=== PATIENT | female | born 1945 | race Caucasian/White ===

== ENCOUNTER 2024-06-02 14:58 | Outpatient (REF) | payer MEDICARE, SELFPAY ==
--- OUTSIDE RECORDS SUMMARY | 2024-06-02 16:08 | XMS_ITS | Clinical Summary ---
Author Organization [facility] [address] [facility] Address [address] [place] [address] Phone Care Team Providers Care Databases Software Consultant Name Role Phone Rk Stringer MD Primary Care Provider [phone] Allergies No known active allergies Medications Medication Sig Dispensed Refills Start Date End Date Status amLODIPine (NORVASC) 2.5 mg tablet Take 1 tablet (2.5 mg total) by mouth 1 (one) time each day. 03/13/2023 Active aspirin 81 mg EC tablet Take 1 tablet (81 mg total) by mouth 1 (one) time. Active atorvastatin (LIPITOR) 20 mg tablet Take 1 tablet (20 mg total) by mouth 1 (one) time each day. 04/24/2023 Active calcium carbonate (Calcium 500) 1250 mg (500 mg elemental calcium) chewable tablet Chew 1,000 mg. 05/14/2016 Active cholecalciferol (VITAMIN D-3) 25 mcg (1,000 unit) capsule Take 1 capsule (1,000 Units total) by mouth 1 (one) time each day. Active levothyroxine (SYNTHROID, LEVOTHROID) 25 mcg tablet Take 1 tablet (25 mcg total) by mouth 1 (one) time each day. 05/01/2023 Active loratadine (CLARITIN) 10 mg tablet Take 1 tablet (10 mg total) by mouth 1 (one) time each day. 10/21/2022 Active losartan (COZAAR) 50 mg tablet Take 1 tablet (50 mg total) by mouth 1 (one) time each day. 03/13/2023 Active Active Problems Problem Noted Date Diagnosed Date Multiple thyroid nodules 11/28/2014 Tubular adenoma of colon 11/10/2014 Overview (07/03/2023): 2012 Subclinical hyperthyroidism 10/28/2014 Hypertension 08/31/2014 Hyperlipidemia 08/31/2014 Vitamin D deficiency 08/31/2014 Hypothyroidism 08/31/2014 Diverticulosis 08/31/2014 GERD (gastroesophageal reflux disease) 5 Osteoporosis 08/31/2014 Overview (07/03/2023): DEXA Axial Skeleton 05/13/2013 Encounters Date Type Department Care Team Description 03/15/2024 11:00 AM EST Office Visit Adult Medicine [address] [address] Rk Stringer MD Primary hypertension (Primary Dx); Memory loss; Vitamin D deficiency; Hypothyroidism, unspecified type; Multiple thyroid nodules from Last 3 Months Immunizations Name Administration Dates Next Due Influenza Quadravalent, 0.5m l (Fluzone High-dose) 65yo and older 01/13/2023,12/18/2021 Influenza trivalent, 0.5mL ( Fluzone High-dose) 65yo and older 12/18/2021 Influenza, Unspecified 01/05/2020,2018,01/04/2018,01/19,01/16/2016,01/11/2015,01/24/2008 Pfizer (ages 12 & older) Biv alent, COVID-19 02/07/2022 Pfizer SARS-CoV-2 COVID-19, mRNA, LNP-S, preservative free 01/16/2023,01/05/2021 Pneumococcal conjugate 13 va lent (Prevnar 13, PCV13) 2mo and older 01/05/2020,01/16/2016 Pneumococcal polysaccharide 23 valent (Pneumovax 23) 2yo and older 01/11/2015 Td Tetanus diptheria (Tdvax) 7yo and older 01/05/2021 Zoster Live 02/08/2015 Zoster recombinant (Shingrix ) 19yo and older 01/26/2020,11/26/2019 Surgical History Surgery Date Site/Laterality Comments OTHER SURGICAL HISTORY 1969 Right PROCEDURE: ---- OTHER ----; COMMENT: Shoulder surgery OTHER SURGICAL HISTORY 1989 PROCEDURE: MT HYSTEROSCOPY REMOVAL LEIOMYOMATA; COMMENT: fibroid resection MULTIPLE TOOTH EXTRACTIONS PROCEDURE: HISTORICAL DENTAL EXTRACTION COLONOSCOPY 2012 PROCEDURE: HISTORICAL COLONOSCOPY; COMMENT: adenoma repeat 5 yrs SHOULDER SURGERY Right PROCEDURE: MT UNLISTED PROCEDURE SHOULDER; COMMENT: calcium in shoulder COLONOSCOPY 09/04/2018 PROCEDURE: HISTORICAL COLONOSCOPY; COMMENT: 5 mm polyp: Tubular adenoma. CATARACT EXTRACTION 2017 Bilateral PROCEDURE: HISTORICAL CATARACT REMOVAL BREAST BIOPSY Right PROCEDURE: BX BREAST; PERC NEEDLE CORE W/IMAG GUID; COMMENT: benign Medical History Medical History Date Comments Hypertension 08/31/2014 DX:Hypertension Diverticulosis 08/31/2014 DX:Diverticulosi s; COMMENT: Colonoscopy 01/14/2013 Osteoporosis 08/31/2014 DX:Osteoporosis; COMMENT: DEXA Axial Skeleton 05/13/2013 GERD (gastroesophageal reflux disease) 08/31/2014 DX:GERD (gastroesophageal reflux disease) Hyperlipidemia 08/31/2014 DX:Hyperlipidemi a Vitamin D deficiency 08/31/2014 DX:Vitamin D deficiency Hypothyroidism 08/31/2014 DX:Hypothyroidis m Tubular adenoma of colon 11/10/2014 DX:Tubu lar adenoma of colon; COMMENT: 2012 Family History Medical History Relation Name Comments Breast cancer Aunt mat and cousin Heart attack Father Arthritis Mother Heart attack Mother Colon cancer Neg Hx Ovarian cancer Neg Hx Relation Name Status Comments Aunt mat Father Mother Other mat 1st cousin Alive Social History Tobacco Use Types Packs/Day Years Used Date Smoking Tobacco: Never Smokeless Tobacco: Never Tobacco Cessation:Counseling Given: Not Answered Alcohol Use Standard Drinks/Week Comments No 0 (1 standard drink = 0.6 oz pur e alcohol) Housing Instability Answer Date Recorde d Are you worried that in the next 2 months you may not have stable housing? No 03/13/2024 Food Access & Nutrition Answer Date Rec orded Do you have access to a vari ety of food including fruits and vegetables? Yes 03/13/2024 Access to Healthcare Answer Date Record ed Within the last 3 months, ho w many times did you visit the emergency department for your medical care? 0 03/13/2024 Health Literacy Answer Date Recorded How often do you need to hav e someone help you when you read instructions, pamphlets, or other written material from your doctor or pharmacy? Never 03/13/2024 Caregiver: How often do you need to have someone help you when you read instructions, pamphlets, or other written material from your doctor or pharmacy? Not on file 03/13/2024 Financial Risk Answer Date Recorded How hard is it for you to pa y for the very basics like food, housing, medical care, and air conditioning / heating? Not asked 03/13/2024 Transportation Answer Date Recorded Has the lack of transportati on kept you from meetings, work, or from getting things needed for daily living? No Has the lack of transportati on kept you from medical appointments or from getting medications? No 03/13/2024 Social Isolation Answer Date Recorded How often do you feel lonely or isolated from th ose around you? Never 03/13/2024 Food Risk Answer Date Recorded Within the past 12 months we worried whether our food would run out before we got money to buy more. Never true 03/13/2024 Within the past 12 months th e food we bought just didn't last and we didn't have money to get more. Never true 03/13/2024 Dependent Care Answer Date Recorded Do you need help finding or paying for care for your loved ones. For example, children's entertainer or elderly care for an older adult? No 03/13/2024 Education Answer Date Recorded Do you think completing more education or training, like finishing a GED, going to college, or learning a trade, would be helpful for you? No 03/13/2024 Employment and Income Answer Date Recor ded During the last four weeks, have you been actively looking for work? No 03/13/2024 Living Situation Answer Date Recorded What is your living situation? 1 05/13/2023 Sex and Gender Information Value Date Recorded Sex Assigned at Not on file Gender Identity Not on file Sexual Orientation Not on file Job Start Date Occupation Industry Not on file Not on file Not on file Obstetrics History Last Filed Vital Signs Vital Sign Reading Time Taken Comments Blood Pressure 171/65 03/15/2024 11:17 AM EST a Pulse 65 03/15/2024 11:17 AM EST Temperature 36.4 ??C (97.6 ??F) 03/15/2024 1 1:07 AM EST Respiratory Rate 12 03/15/2024 11:0 7 AM EST Oxygen Saturation 99% 03/15/2024 11: 07 AM EST Inhaled Oxygen Concentration - - Weight 52.5 kg (115 lb 11.2 oz) 024 11:07 AM EST Height 162.6 cm (5' 4 ) 03/15/2024 11:0 7 AM EST Body Mass Index 19.86 03/15/2024 11:07 AM EST Plan of Treatment Upcoming Encounters Date Type Department Care Team (Late st Contact Info) Description 09/13/2024 9:45 AM EDT Office Visit Adult Medicine [facility] [address] [place] [address] Rk Stringer MD [address] [place] [id number] Health Maintenance Due Date Last Done Comments RSV Immunization Patients 60+ Years Old (1 - 1-dose 75+ series) 12/20/2018 Medicare Annual Wellness Visit 04/06/2022 Colorectal Cancer Screening: Colonoscopy 09/05/2023 09/04/2018 COVID-19 Vaccine ( season) 2023 01/16/2023, 02/07/2022, 02/15/2021, Additional history exists Falls Risk Assessment 11/02/2024 11/03/2023, 023 Hypertension/CHF/CAD Annual BMP Blood Test 11/02/2024 11/03/2023, 11/03/2023 Depression Screening 03/13/2025 03/13/2024, 03/13/2023, 03/13/2023 Social Influencers of Health Screening 03/13/2025 03/13/2024 Cholesterol Screening (Lipid Panel) 11/02/2028 11/03/2023, 11/03/2023, 10/21/2022 DTaP,Tdap,and Td Vaccines (2 - Td or Tdap) 01/05/2031 01/05/2021 Osteoporosis Screening (Bone Density Screening) 05/09/2032 05/09/2022, 01/27/2020, 06/03/2017 Pneumococcal Vaccine: 65+ Years Completed 01/05/2020, 01/16/2016, 01/11/2015 Zoster Vaccines Completed 01/26/2020, 10/28, 02/08/2015 Influenza Vaccine Completed 12/13/2023, , 12/18/2021, Additional history exists HIB Vaccines Aged Out No longer eligi ble based on patient's age to complete this topic HPV Vaccines Aged Out No longer eligi ble based on patient's age to complete this topic Hepatitis A Vaccines Aged Out No long er eligible based on patient's age to complete this topic Hepatitis B Vaccines Aged Out No long er eligible based on patient's age to complete this topic IPV Vaccines Aged Out No longer eligi ble based on patient's age to complete this topic MMR Vaccines Aged Out No longer eligi ble based on patient's age to complete this topic Meningococcal ACWY Vaccine Aged Out N o longer eligible based on patient's age to complete this topic RSV Immunization Patients Under 20 months Aged Out No longer eligible based on patient's age to complete this topic Varicella Vaccines Aged Out No longer eligible based on patient's age to complete this topic Procedures Procedure Name Priority Date/Time Associated Diagnosis Comments VITAMIN D 25 HYDROXY Routine 03/15/2024 12:14 PM EST Vitamin D deficiency THYROID STIMULATING HORMONE WITH REFLEX TO FREE T4 AND FREE T3 Routine 03/15/2024 12:14 PM EST Memory loss VITAMIN B12 Routine 03/15/2024 12:14 PM EST Memory loss FOLATE Routine 03/15/2024 12:14 PM EST Memory loss TREPONEMA PALLIDUM ANTIBODY WITH REFLEX TO RPR AND PARTICLE AGGLUTINATION Routine 03/15/2024 12:14 PM EST Memory loss SEDIMENTATION RATE Routine 03/15/2024 12 :14 PM EST Memory loss ANNUAL BMP BLOOD TEST Routine 11/03/2023 FALLS RISK ASSESSMENT Routine 11/03/2023 LIPID PANEL Routine 11/03/2023 DEPRESSION SCREENING Routine 03/13/2023 DXA BONE DENSITY STUDY 1+ SITS AXIAL SKEL Routine 05/09/2022 9:23 AM EST Age-related osteoporosis without current pathological fracture COLONOSCOPY Routine 09/04/2018 from Last 3 Months or Most Recently Relevant to Health Maintenance Results * Treponema pallidum antibody with reflex to RPR and particle agglutination (03/15/2024 12:14 PM EST) T. Pallidum Antibodies Negative Negative LAB CHEMISTRY METHOD 03/15/2024 4:12 PM EST [facility] Blood Venous blood specimen / Unknown Venipuncture / Unknown 03/15/2024 12:14 PM EST 03/15/2024 12:14 PM EST Rk Stringer MD LAB BLOOD ORDERABLES Performing Organization Address City/[facility]/ZIP Co de Phone Number [facility] [address] [place] [address], [place] [phone] * Thyroid stimulating hormone with reflex to free t4 and free t3 (03/15/2024 12:14 PM EST) TSH 1.14 0.40 - 4.00 mcIU/mL LAB CHEMISTRY METHOD 03/15/2024 4:01 PM EST [facility] Blood Venous blood specimen / Unknown Venipuncture / Unknown 03/15/2024 12:14 PM EST 03/15/2024 12:14 PM EST Rk Stringer MD LAB BLOOD ORDERABLES Performing Organization Address City/[facility]/ZIP Co de Phone Number [facility] [address] [place] [address], [place] [phone] * Vitamin D 25 hydroxy (03/15/2024 12:14 PM EST) Vit D, 25-Hydroxy 60.3 30.0 - 80.0 ng/mL LAB CHEMISTRY METHOD 03/15/2024 4:01 PM EST [facility] Blood Venous blood specimen / Unknown Venipuncture / Unknown 03/15/2024 12:14 PM EST 03/15/2024 12:14 PM EST Rk Stringer MD LAB BLOOD ORDERABLES [facility] [address] [place] [address], [place] [phone] * Sedimentation rate (03/15/2024 12:14 PM EST) [facility] Sed Rate <1 0 - 30 mm/hr LAB HEMETOLOGY METHOD 03/15/2024 2:12 PM EST [facility] Blood Venous blood specimen / Unknown Venipuncture / Unknown 03/15/2024 12:14 PM EST 03/15/2024 12:14 PM EST Rk Stringer MD LAB BLOOD ORDERABLES Performing Organization Address City/[facility]/ZIP Co de Phone Number [facility] [address] [place] [address], [place] [phone] * Folate (03/15/2024 12:14 PM EST) Pathologist [facility] Folate 13.8 2.8 - 17.0 ng/ml LAB CHEMISTRY METHOD 03/15/2024 4:16 PM EST [facility] Blood Venous blood specimen / Unknown Venipuncture / Unknown 03/15/2024 12:14 PM EST 03/15/2024 12:14 PM EST Rk Stringer MD LAB BLOOD ORDERABLES Performing Organization Address City/[facility]/ZIP Co de Phone Number [facility] [address] [place] [address], [place] [phone] * Vitamin B12 (03/15/2024 12:14 PM EST) [facility] Vitamin B-12 537 250 - 900 pcg/mL LAB CHEMISTRY METHOD 03/15/2024 4:16 PM EST [facility] Blood Venous blood specimen / Unknown Venipuncture / Unknown 03/15/2024 12:14 PM EST 03/15/2024 12:14 PM EST Rk Stringer MD LAB BLOOD ORDERABLES [facility] [address] [place] [address], * Annual BMP Blood Test (11/03/2023) [facility] Annual BMP Blood Test abstracted Historical Provider MD STAHL MAINLUI E * Falls Risk Assessment (11/03/2023) [facility] Falls Risk Assessment abstracted Historical Provider [facility] MAIN[facility] E * Lipid panel (11/03/2023) [facility] LDL/HDL Ratio 2 0 - 4 Triglycerides 68 0 - 150 mg/dL Cholesterol 154 0 - 200 mg/dL HDL 70 40 mg/dL LDL Cholesterol 71 0 - 100 mg/dL Blood Venous blood specimen / Unknown Historical Provider LAB BLOOD ORDERAB LES * Depression Screening (03/13/2023) [facility] Depression Screening abstracted Historical Provider [facility] MAINLUI E * DXA BONE DENSITY STUDY 1+ SITS AXIAL SKEL (05/09/2022 9:23 AM EST) Anatomical Region Laterality Modality Bone Densitometr y 03/24/2022 2:44 PM EST Narrative 05/09/2022 3:05 PM EST BONE DENSITY ? Lumbar Spine T-score is -2.7 ?? (SD relative to 20-29 y/o adult) Z-score is -0.2 ??(SD relative to age matched peers) This is consistent with osteoporosis by criteria defined by the WHO. Left Hip T-score is -2.1 Z-score is +0.1 This is consistent with osteopenia by criteria defined by the WHO. Comparison exam(s): no statistically significant change in the bone density of the hip when compared to most recent bone density examination ?? Confidence level is +/-95%. Impression: Based on the World Health Organization criteria, Elva Klein should be classified as having osteoporosis. [facility] Department of Internal Medicine recommends using National Osteoporosis Foundation (NOF) guidelines in treatment decisions related to osteoporosis. NOF guidelines suggest considering treatment for postmenopausal women and men aged 50 or older presenting with the following: History of hip or vertebral fracture. T-score less than or equal to -2.5 (DXA) at the femoral neck, total hip, or spine, after appropriate evaluation to exclude secondary causes. Low bone mass (T-score between -1.0 and -2.5 at the femoral neck or spine) AND a 10-year probability of a hip fracture greater than or equal to 3% OR a 10-year probability of a major osteoporosis-related fracture greater than or equal to 20% based on the [place]-adapted WHO algorithm Please note that all treatment decisions require clinical judgment and consideration of individual patient factors, including patient preferences, co-morbidities, previous drug use, risk factors not captured in the FRAX model (e.g., frailty, falls, vitamin D deficiency, increased bone turnover, interval significant decline in bone density) and possible under- or over-estimation of fracture risk by FRAX. Procedure Note Berto Salcido MD - 06/03/2023 BONE DENSITY Lumbar Spine T-score is -2.7 (SD relative to 20-29 y/o adult) Z-score is -0.2 (SD relative to age matched peers) This is consistent with osteoporosis by criteria defined by the WHO. Left Hip T-score is -2.1 Z-score is +0.1 This is consistent with osteopenia by criteria defined by the WHO. Comparison exam(s): no statistically significant change in the bonedensity of the hip when compared to most recent bone density examination Confidence level is +/-95%. Impression: Based on the World Health Organization criteria, Elva Klein should beclassified as having osteoporosis. [facility] Department of Internal Medicine recommendsusing National Osteoporosis Foundation (NOF) guidelines in treatmentdecisions related to osteoporosis. NOF guidelines suggest consideringtreatment for postmenopausal women and men aged 50 or older presentingwith the following: History of hip or vertebral fracture. T-score less than or equal to -2.5 (DXA) at the femoral neck, total hip,or spine, after appropriate evaluation to exclude secondary causes. Low bone mass (T-score between -1.0 and -2.5 at the femoral neck or spine)AND a 10-year probability of a hip fracture greater than or equal to 3% ORa 10-year probability of a major osteoporosis-related fracture greaterthan or equal to 20% based on the [place]-adapted WHO algorithm Please note that all treatment decisions require clinical judgment andconsideration of individual patient factors, including patientpreferences, co-morbidities, previous drug use, risk factors not capturedin the FRAX model (e.g., frailty, falls, vitamin D deficiency, increasedbone turnover, interval significant decline in bone density) and possibleunder- or over-estimation of fracture risk by FRAX. Rk Stringer MD [facility] DXA PROCEDURES * Colonoscopy (09/04/2018) Colonoscopy no interpretation , abstracted Anatomical Region Laterality Modality Other Historical Provider MD MARIBETH Sullivan from Last 3 Months or Most Recently Relevant to Health Maintenance Care Teams Databases Software Consultant Relationship Specialty Start Date End Date Rk Stringer MD [address] [place] [address] [id number] PCP - General Internal Medicine 10/26/19
[2024-06-02 17:20] LABS: Vitamin B12 544 pg/mL (200-900)
== END 2024-06-02 14:59 | disposition home or self-care (01) ==
LOC: HO.LAB 14:58
PROVIDERS: PCP Internal Medicine; Visit Provider Psychiatry & Neurology Neurology
DX: G30.9 Alzheimer's disease, unspecified (principal)
CPT/HCPCS: 36415; 82607

== ENCOUNTER 2024-06-11 07:48 | Outpatient (REF) | payer MEDICARE, SELFPAY ==
--- NOTE | ~2024-06-11 | MR_ITS ---
CLINICAL HISTORY: ALZHEIMER DISEASE MR Brain without gadolinium Comparison: None Findings: No restricted diffusion. No intracranial mass or hemorrhage. No midline shift. No hydrocephalus. Vascular flow voids are intact. There are significant central and cortical involutional changes. There are scattered mild less than 1 cm increased T2 foci within the periventricular and subcortical white matter. There is likely bilateral lens replacement surgery. There is a mild right mastoid effusion. There is mild mucosal thickening and partial opacification within the paranasal sinuses. The orbits are normal. The sinuses are unremarkable. No focal bone lesion. IMPRESSION: Significant central and cortical involutional changes No MRI evidence for acute infarction Scattered mild old small-vessel white matter ischemic changes Likely bilateral lens replacement surgery Mild right mastoid effusion Mild infectious/inflammatory changes paranasal sinuses This document has been electronically signed by: Demond Gallo MD on 06/12/2024 06:04:47
--- OUTSIDE RECORDS SUMMARY | 2024-06-11 07:52 | XMS_ITS | Clinical Summary ---
Author Organization [facility] [address] [facility] Address [address] [facility] [place] [address] Phone Care Team Providers Care Cementing Bulk Material Operator Name Role Phone Rk Stringer MD Primary Care Provider [phone] Allergies No known active allergies Medications amLODIPine (NORVASC) 2.5 mg tablet Take 1 [...] 11:00 AM EST Office Visit Adult Medicine [address] [phone] Rk Stringer MD Primary hypertension (Primary Dx); [...] Shoulder surgery OTHER SURGICAL HISTORY 1989 PROCEDURE: TN HYSTEROSCOPY REMOVAL LEIOMYOMATA; COMMENT: fibroid resection MULTIPLE TOOTH EXTRACTIONS PROCEDURE: HISTORICAL DENTAL EXTRACTION COLONOSCOPY 2012 PROCEDURE: HISTORICAL COLONOSCOPY; COMMENT: adenoma repeat 5 yrs SHOULDER SURGERY Right PROCEDURE: TN UNLISTED PROCEDURE SHOULDER; COMMENT: calcium in shoulder [...] care for your loved ones. For example, childcare teacher or elderly care for an older adult? [...] What is your living situation? 1 05/13/2023 Comments Unknown Sex and Gender Information Value Date Recorded Sex Assigned at Not on file Legal Sex Female 12:03 PM EST Gender Identity Not on file Sexual Orientation Not on file Obstetrics History Last Filed [...] 9:45 AM EDT Office Visit Adult Medicine [facility] [address] [place] [phone] Rk Stringer MD [address] [place] [phone] Health Maintenance Due Date Last Done Comments [...] Screening) 05/09/2032 05/09/2022, 01/27/2020, 06/03/2017 Pneumococcal Vaccine: 50+ Years Completed 01/05/2020, 01/16/2016, 01/11/2015 Zoster Vaccines [...] patient's age to complete this topic Meningococcal B Vacine Aged Out No lo nger eligible based on patient's age to complete [...] and particle agglutination (03/15/2024 12:14 PM EST) Pathologist [facility] T. Pallidum Antibodies Negative Negative LAB CHEMISTRY METHOD 03/15/2024 4:12 PM EST [facility] Blood Venous blood specimen / Unknown Venipuncture / Unknown 03/15/2024 12:14 PM EST 03/15/2024 12:14 PM EST us Rk Stringer MD LAB BLOOD ORDERABLES Final Resu lt Performing Organization Address City/[facility]/ZIP Co de Phone Number [facility] [address] [place] [address], [place] [phone] * Thyroid stimulating hormone with reflex to free t4 and free t3 (03/15/2024 12:14 PM EST) Pathologist [facility] TSH 1.14 0.40 - 4.00 mcIU/mL LAB CHEMISTRY METHOD 03/15/2024 4:01 PM EST [facility] Blood Venous blood specimen / Unknown Venipuncture / Unknown 03/15/2024 12:14 PM EST 03/15/2024 12:14 PM EST us Rk Stringer MD LAB BLOOD ORDERABLES Final Resu lt [facility] [address] [place] [address], [place] [phone] * Vitamin D 25 hydroxy (03/15/2024 12:14 PM EST) [facility] Vit D, 25-Hydroxy 60.3 30.0 - 80.0 ng/mL LAB CHEMISTRY METHOD 03/15/2024 4:01 PM EST [facility] Blood Venous blood specimen / Unknown Venipuncture / Unknown 03/15/2024 12:14 PM EST 03/15/2024 12:14 PM EST us Rk Stringer MD LAB BLOOD ORDERABLES Final Resu lt [facility] [address] [place] [address], [place] [phone] * Sedimentation rate (03/15/2024 12:14 PM EST) [facility] Sed Rate <1 0 - 30 mm/hr LAB HEMETOLOGY METHOD 03/15/2024 2:12 PM EST [facility] Blood Venous blood specimen / Unknown Venipuncture / Unknown 03/15/2024 12:14 PM EST 03/15/2024 12:14 PM EST us Rk Stringer MD LAB BLOOD ORDERABLES Final Resu lt [facility] [address] [place] [address], [place] [phone] * Folate (03/15/2024 12:14 PM EST) [facility] Folate 13.8 2.8 - 17.0 ng/ml LAB CHEMISTRY METHOD 03/15/2024 4:16 PM EST [facility] Blood Venous blood specimen / Unknown Venipuncture / Unknown 03/15/2024 12:14 PM EST 03/15/2024 12:14 PM EST Rk Stringer MD LAB BLOOD ORDERABLES Final Resu lt [facility] [address] [place] [address], [place] [phone] * Vitamin B12 (03/15/2024 12:14 PM EST) [facility] Vitamin B-12 537 250 - 900 pcg/mL LAB CHEMISTRY METHOD 03/15/2024 4:16 PM EST [facility] Blood Venous blood specimen / Unknown Venipuncture / Unknown 03/15/2024 12:14 PM EST 03/15/2024 12:14 PM EST Rk Stringer MD LAB BLOOD ORDERABLES Final Resu lt Performing Organization Address City/[facility]/ZIP Co de Phone Number [facility] [address] [place] [address], [place] [phone] * Annual BMP Blood Test (11/03/2023) Pathologist [facility] Annual BMP Blood Test abstracted Result [facility] Provider HEALTH MAINTENANCE Final Result * Falls Risk Assessment (11/03/2023) [facility] Falls Risk Assessment abstracted [facility] Provider HEALTH MAINTENANCE Final Result * Lipid panel (11/03/2023) [facility] LDL/HDL Ratio 2 0 - 4 Triglycerides 68 0 - 150 mg/dL Cholesterol 154 0 - 200 mg/dL HDL 70 >=40 mg/dL LDL Cholesterol 71 0 - 100 mg/dL Blood Venous blood specimen / Unknown Result [facility] Provider LAB BLOOD ORDERABLES Polly l Result * Depression Screening (03/13/2023) Pathologist [facility] Depression Screening abstracted [facility] Provider HEALTH MAINTENANCE Final Result * DXA BONE DENSITY STUDY 1+ SITS [...] should be classified as having osteoporosis. The [facility] Department of Internal Medicine recommends using National [...] Klein should beclassified as having osteoporosis. The [facility] Department of Internal Medicine recommendsusing National Osteoporosis [...] fracture risk by FRAX. Rk Stringer MD [facility] DXA PROCEDURES Final Result * Colonoscopy (09/04/2018) Colonoscopy no interpretation , abstracted Anatomical Region Laterality Modality Other Historical Provider HEALTH MAINTENANCE Final Result from Last 3 Months or Most Recently Relevant to Health Maintenance Insurance MEDICARE [facility] Care Teams Cementing Bulk Material Operator Relationship Specialty Start Date End Date Rk Stringer MD [address] [place] [phone] PCP - General Internal Medicine 10/26/19
== END 2024-06-11 07:49 | disposition home or self-care (01) ==
LOC: HO.MRI 07:48
PROVIDERS: PCP Internal Medicine; Visit Provider Psychiatry & Neurology Neurology
DX: G30.9 Alzheimer's disease, unspecified (principal)
CPT/HCPCS: 70551

== ENCOUNTER → 2024-06-11 08:00 | Outpatient (BNV) | payer MEDICARE, SELFPAY | PROVIDERS: PCP Internal Medicine; Visit Provider Radiology Diagnostic Radiology | DX: G30.9 Alzheimer's disease, unspecified (principal) | CPT/HCPCS: 70551 ==

== ENCOUNTER 2025-01-05 08:26 | Outpatient (AMB) | payer MEDICARE, SELFPAY ==
--- NOTE | 2025-01-05 08:28 | A.OFFVIS_ITS ---
Intake Visit Reasons: 6m Allergies No Known Allergies Allergy (Verified 12/29/24 09:19) HPI Comments Details: 79 years old woman with dementia probably of Alzheimer type. Her symptoms started in 2023 with forgetfulness. Frequently she was getting confused and it was slowly getting worse. She was living with her . MRI of brain revealed [id number] diffuse atrophy with minimal microvascular ischemic disease. She is presenting with memory loss and sleep disturbances. She has experienced a gradual decline in memory, including difficulty recalling events and following recipes, notably during routine activities like cooking. Despite these cognitive challenges, she continues to manage her medications and personal care independently. Additionally, the patient experiences disturbances in sleep, often waking once nightly, associated with a light midnight snack. These conditions have not shown significant changes or acute exacerbations, nor are they associated with any recent life events or stressors. [facility] Medical History (Updated 01/05/25 @ 08:30 by Tawanda Banks MD) Alzheimer disease Review of Systems Const Details: - Nervous System: Reports memory loss. - Psychiatric: Reports sleep disturbance; denies changes in mood. - General: Denies difficulty maintaining personal hygiene. Physical Exam Neuro Other: She is alert and awake with normal spontaneity of speech fluency comprehension and affect. Balance gait and coordination are normal. Assessment & Plan Assessment & Plan (1) Alzheimer disease: Comment: MRI brain WO at [facility] in 2024: Mild to mod atrophy, minimal MVD Code(s): G30.9 - Alzheimer's disease, unspecified; F02.80 - Dementia in other diseases classified elsewhere, unspecified severity, without behavioral disturbance, psychotic disturbance, mood disturbance, and anxiety Category: Medical Plan Impression recommendations: 79 years old woman with mild dementia probably of Alzheimer type at this time not having any other significant symptoms other than forgetfulness and confusion. We talked about different ways of managing her including staying active regular physical activity. Clinical follow would continue. Coding Level of Care Code Est Pt Level 4 (85289) Diagnoses Alzheimer disease G30.9; F02.80
--- OUTSIDE RECORDS SUMMARY | 2025-01-05 09:43 | XMS_ITS | Clinical Summary ---
Author Organization [facility] [address] [facility] Address [address] [place] [address] Phone Care Team Providers Care Admitted Attorneys Name Role Phone Rk Stringer MD Primary Care Provider [phone] Allergies No known active allergies Medications aspirin 81 mg EC tablet Take 1 tablet (81 mg total) by mouth 1 (one) time. Active calcium carbonate (Calcium 500) 1250 mg (500 mg elemental calcium) chewable tablet Chew 1,000 mg. 7 Active cholecalcifero l (VITAMIN D-3) 25 mcg (1,000 unit) capsule Take 1 capsule (1,000 Units total) by mouth 1 (one) time each day. Active atorvastatin (LIPITOR) 20 mg tablet TAKE 1 TABLET BY MOUTH EVERY DAY 90 tablet 1 5 Active losartan (COZAAR) 50 mg tablet TAKE 1 TABLET BY MOUTH EVERY DAY 90 tablet 1 5 Active loratadine (CLARITIN) 10 mg tablet TAKE 1 TABLET BY MOUTH EVERY DAY 90 tablet 1 5 Active amLODIPine (NORVASC) 2.5 mg tablet TAKE 1 TABLET BY MOUTH EVERY DAY 90 tablet 1 5 Active levothyroxine (SYNTHROID, LEVOTHROID) 25 mcg tablet TAKE 1/2 TABLET BY MOUTH DAILY 45 tablet 1 5 Active amLODIPine (NORVASC) 2.5 mg tablet TAKE 1 TABLET BY MOUTH EVERY DAY 90 tablet 1 5 12/17/19 25 Discontinued levothyroxine (SYNTHROID, LEVOTHROID) 25 mcg tablet TAKE 1/2 TABLET BY MOUTH DAILY 45 tablet 1 5 12/17/19 25 Discontinued Active Problems Problem Noted Date Diagnosed Date Moderate Alzheimer's dementi a without behavioral disturbance, psychotic disturbance, mood disturbance, or anxiety ([facility] V24, [facility] V28) 09/13/2024 Multiple thyroid nodules 11/28/2014 Tubular adenoma of colon 11/10/2014 Overview (07/03/2023): 2012 Subclinical hyperthyroidism 10/28/2014 Hypertension 08/31/2014 Hyperlipidemia 08/31/2014 Vitamin D deficiency 08/31/2014 Hypothyroidism 08/31/2014 Diverticulosis 08/31/2014 GERD (gastroesophageal reflux disease) 5 Osteoporosis 08/31/2014 Overview (07/03/2023): DEXA Axial Skeleton 05/13/2013 Immunizations Name Administration Dates Next Due Influenza [...] Surgery Date Site/Laterality Comments OTHER SURGICAL HISTORY 1970 Right PROCEDURE: ---- OTHER ----; COMMENT: Shoulder surgery OTHER SURGICAL HISTORY 1989 PROCEDURE: RI HYSTEROSCOPY REMOVAL LEIOMYOMATA; COMMENT: fibroid resection MULTIPLE TOOTH EXTRACTIONS PROCEDURE: HISTORICAL DENTAL EXTRACTION COLONOSCOPY 2012 PROCEDURE: HISTORICAL COLONOSCOPY; COMMENT: adenoma repeat 5 yrs SHOULDER SURGERY Right PROCEDURE: RI UNLISTED PROCEDURE SHOULDER; COMMENT: calcium in shoulder [...] Date Smoking Tobacco: Never Smokeless Tobacco: Never Alcohol Use Standard Drinks/Week Comments No 0 [...] for your loved ones. For example, children's nursery assistant or elderly care for an older adult? [...] is your living situation? 1 05/13/2023 Comments No Sex and Gender Information Value Date Recorded Sex Assigned at Not on file Legal Sex Female 12:03 PM EST Gender Identity Not on file Sexual Orientation Not on file Obstetrics History Last Filed Vital Signs Vital Sign Reading Time Taken Comments Blood Pressure 142/70 09/13/2024 9:21 AM EDT Pulse 64 09/13/2024 9:21 AM EDT Temperature 36.4 C (97.5 F) 09/13/2024 9:21 AM EDT Respiratory Rate 14 09/13/2024 9:21 AM EDT Oxygen Saturation 97% 09/13/2024 9:21 AM EDT Inhaled Oxygen Concentration - - Weight 50.3 kg (111 lb) 09/13/2024 9:21 AM EDT Height 162.6 cm (5' 4 ) 09/13/2024 9:21 AM EDT Body Mass Index 19.05 09/13/2024 9:21 AM EDT Plan of Treatment Upcoming Encounters Date Type Department Care Team (Late st Contact Info) Description 03/16/2025 10:30 AM EST Office Visit Adult Medicine [address] [phone] Radha Juares PA [address] [place] [address] 09/13/2025 9:30 AM EDT Office Visit Adult [address] [phone] Rk Stringer MD [address] [place] [address] Health Maintenance Due Date Last Done Comments RSV Immunization Adult Patients (1 - 1-dose 75+ series) 12/20/2018 Medicare Annual Wellness Visit 04/06/2022 Colorectal Cancer Screening: Colonoscopy 09/05/2023 09/04/2018 Depression Screening 04/28/2024 03/13/2024, 03/13/20 23 Falls Risk Assessment 11/02/2024 11/03/2023, 023 COVID-19 Vaccine ( season) 2024 01/16/2023, 02/07/2022, 02/15/2021, Additional history exists Influenza Vaccine (#1) 2024 , 01/13/2023, 12/18/2021, Additional history exists Social Influencers of Health Screening 03/13/2025 03/13/2024 Hypertension/CHF/CAD Annual BMP Blood Test 09/13/2025 09/13/2024, 11/03/2023, 11/03/2023 Cholesterol Screening (Lipid Panel) 09/13/2029 09/13/2024, 11/03/2023, 11/03/2023, Additional history exists DTaP,Tdap,and Td Vaccines (2 - Td or Tdap) 01/05/2031 01/05/2021 Osteoporosis Screening (Bone Density Screening) 05/09/2032 05/09/2022, 01/27/2020, 06/03/2017 Pneumococcal Vaccine: 50+ Years Completed 01/05/2020, 01/16/2016, 01/11/2015 Zoster Vaccines Completed 01/26/2020, 10/28, 02/08/2015 HIB Vaccines Aged Out No longer eligi [...] age to complete this topic Meningococcal B Vaccine Aged Out No l onger eligible based on patient's age to complete this topic RSV Immunization Patients Under 20 months Aged Out No longer eligible based on patient's age to complete this topic Varicella Vaccines Aged Out No longer eligible based on patient's age to complete this topic Procedures Procedure Name Priority Date/Time Associated Diagnosis Comments COMPREHENSIVE METABOLIC PANEL Routine 09/13/2024 10:19 AM EDT Primary hypertension Encounter for long-term (current) use of medications LIPID PANEL WITH REFLEX TO DIRECT LDL Routine 09/13/2024 10:19 AM EDT Pure hypercholesterolemia FALLS RISK ASSESSMENT Routine 11/03/2023 DEPRESSION SCREENING Routine 03/13/2023 DXA BONE DENSITY STUDY 1+ SITS AXIAL SKEL Routine 05/09/2022 9:23 AM EST Age-related osteoporosis without current pathological fracture HM COLONOSCOPY Routine 09/04/2018 from Last 3 Months or Most Recently Relevant to Health Maintenance Results * Lipid panel with reflex to direct LDL (09/13/2024 10:19 AM EDT) Cholesterol 157 0 - 200 mg/dL LAB CHEMISTRY METHOD 09/13/2024 2:49 PM EDT [facility] Triglycerides 113 0 - 150 mg/dL LAB CHEMISTRY METHOD 09/13/2024 2:49 PM EDT [facility] HDL 63 >=40 mg/dL LAB CHEMISTRY METHOD 09/13/2024 2:49 PM EDT [facility] LDL Calculated 71 0 - 100 mg/dL LAB CHEMISTRY METHOD 09/13/2024 2:49 PM EDT [facility] VLDL Cholesterol Carter 22.6 mg/dL LAB CHEMISTRY METHOD 09/13/2024 2:49 PM EDT [facility] Non HDL Chol. (LDL+VLDL) 94 <145 mg/dL LAB CHEMISTRY METHOD 09/13/2024 2:49 PM EDT [facility] Chol/HDL Ratio 2.5 0.0 - 4.4 LAB CHEMISTRY METHOD 09/13/2024 2:49 PM EDT [facility] Blood Venous blood specimen / Unknown Venipuncture / Unknown 09/13/2024 10:19 AM EDT 09/13/2024 10:19 AM EDT us Rk Stringer MD LAB BLOOD ORDERABLES Final Resu lt [facility] [address] [place] [address], * (ABNORMAL) Comprehensive metabolic panel (09/13/2024 10:19 AM EDT) Sodium 139 133 - 145 mmol/L LAB CHEMISTRY METHOD 09/13/2024 2:49 PM [facility] Potassium 4.3 3.5 - 5.5 mmol/L LAB CHEMISTRY METHOD 09/13/2024 2:49 PM [facility] Chloride 104 96 - 110 mmol/L LAB CHEMISTRY METHOD 09/13/2024 2:49 PM [facility] CO2 27 21 - 32 mmol/L LAB CHEMISTRY METHOD 09/13/2024 2:49 PM [facility] Anion Gap 8 3 - 11 LAB CHEMISTRY METHOD 09/13/2024 2:49 PM [facility] Glucose 104(H) 70 - 100 mg/dL LAB CHEMISTRY METHOD 09/13/2024 2:49 PM [facility] BUN 17 5 - 25 mg/dL LAB CHEMISTRY METHOD 09/13/2024 2:49 PM [facility] Creatinine 0.72 0.50 - 1.10 mg/dL LAB CHEMISTRY METHOD 09/13/2024 2:49 PM [facility] eGFR 85 >=60 mL/min/1. 73m2 LAB CHEMISTRY METHOD 09/13/2024 2:49 PM [facility] Comment:Calculation based on the Chronic Kidney Disease Epidemiology Collaboration (CKD-EPI) equation refit without adjustment for race. BUN/Creatinine Ratio 23.6 LAB CHEMISTRY METHOD 09/13/2024 2:49 PM [facility] Calcium 9.6 8.5 - 10.5 mg/dL LAB CHEMISTRY METHOD 09/13/2024 2:49 PM [facility] AST (SGOT) 23 10 - 42 unit/L LAB CHEMISTRY METHOD 09/13/2024 2:49 PM [facility] ALT (SGPT) 26 10 - 60 unit/L LAB CHEMISTRY METHOD 09/13/2024 2:49 PM [facility] Alkaline Phosphatase 102 42 - 121 unit/L LAB CHEMISTRY METHOD 09/13/2024 2:49 PM EDT [facility] Total Protein 7.5 6.0 - 8.0 g/dL LAB CHEMISTRY METHOD 09/13/2024 2:49 PM EDT [facility] Albumin 4.1 3.2 - 5.0 g/dL LAB CHEMISTRY METHOD 09/13/2024 2:49 PM EDT [facility] Total Bilirubin 0.4 0.0 - 1.4 mg/dL LAB CHEMISTRY METHOD 09/13/2024 2:49 PM EDT [facility] Blood Venous blood specimen / Unknown Venipuncture / Unknown 09/13/2024 10:19 AM EDT 09/13/2024 10:19 AM EDT Rk Stringer MD LAB BLOOD ORDERABLES Final Resu lt [facility] [address] [place] [address], * Falls Risk Assessment (11/03/2023) [facility] Falls Risk Assessment abstracted Historical Provider HEALTH MAINTENANCE Final Result * Depression Screening (03/13/2023) Pathologist [facility] Depression Screening abstracted Historical Provider HEALTH MAINTENANCE Final Result * DXA BONE DENSITY STUDY 1+ SITS AXIAL SKEL (05/09/2022 9:23 AM EST) Anatomical Region Laterality Modality Bone Densitometr y 03/24/2022 2:44 PM EST Narrative 05/09/2022 3:05 PM EST BONE DENSITY Lumbar Spine T-score is -2.7 [...] on the World Health Organization criteria, Elva Bhatt should be classified as having osteoporosis. The [facility] Department of Internal Medicine recommends using [...] on the World Health Organization criteria, Elva Bhatt should beclassified as having osteoporosis. The [facility] Department of Internal Medicine recommendsusing National Osteoporosis [...] fracture risk by FRAX. Rk Stringer MD [facility] DXA PROCEDURES Final Result * Colonoscopy (09/04/2018) Colonoscopy no interpretation , abstracted Anatomical Region Laterality Modality Other Historical Provider HEALTH MAINTENANCE Final Result from Last 3 Months or Most Recently Relevant to Health Maintenance Insurance MEDICARE [facility] Care Teams Admitted Attorneys Relationship Specialty Start Date End Date Rk Stringer MD PCP - General Internal Medicine 10/26/19
--- OUTSIDE RECORDS SUMMARY | 2025-01-05 09:43 | XMS_ITS ---
[facility] Name [facility] Care Team Organization Name Specialty Phone Email Start Date End Da te [facility] 12/15/2024 [facility] DAHIANA REYES Primary Care 03/05/2022 4
== END 2025-01-05 08:40 | disposition home or self-care (01) ==
LOC: HO.HSM 08:27
PROVIDERS: PCP Internal Medicine; Visit Provider Psychiatry & Neurology Neurology
DX: G30.9 Alzheimer's disease, unspecified (principal); F02.80 Dementia in other diseases classified elsewhere, unspecified severity, without behavioral disturbance, psychotic disturbance, mood disturbance, and anxiety
CPT/HCPCS: 99214

== ENCOUNTER → 2025-01-05 08:26 | Outpatient (BNVA) | payer MEDICARE, SELFPAY | PROVIDERS: PCP Internal Medicine; Visit Provider Psychiatry & Neurology Neurology | DX: G30.9 Alzheimer's disease, unspecified (principal); F02.80 Dementia in other diseases classified elsewhere, unspecified severity, without behavioral disturbance, psychotic disturbance, mood disturbance, and anxiety | CPT/HCPCS: 99212 ==